=== PATIENT | female | born 1950 | race Caucasian/White ===

== ENCOUNTER 2016-11-04 18:24 | Emergency (ER) | payer OTHER ==
--- NOTE | 2016-11-04 18:35 | ER Document Report ---
ED Medical Screen (RME) - General Stated Complaint: FLU LIKE SYMPTOMS Notes: tuesday bodyaches, fever, chills, nasal congestion did not recieve flu vaccine this year I have greeted and performed a rapid initial assessment of this patient. A comprehensive ED assessment and evaluation of the patient, analysis of test results and completion of the medical decision making process will be conducted by additional ED providers. - Related Data Allergies/Adverse Reactions: No Known Allergies Allergy (Unverified 11/04/16 18:33) Physical Exam - Vital signs Vitals: Temp Pulse Resp BP Pulse Ox 97.8 F 77 18 106/88 H 97 11/04/16 18:30 11/04/16 18:30 11/04/16 18:30 11/04/16 18:30 11/04/16 18:30 Course - Vital Signs Vital signs: Temp Pulse Resp BP Pulse Ox 97.8 F 77 18 106/88 H 97 11/04/16 18:30 11/04/16 18:30 11/04/16 18:30 11/04/16 18:30 11/04/16 18:30
[2016-11-04] MEDS ORDERED: ALBUTEROL SULFATE HFA (90 MCG/PUFF) 8 GM MDI (1 MDI/ER DISP) IH PRN (19:58)
[2016-11-04] MEDS ORDERED: PREDNISONE 20 MG TABLET PO ONE (19:59)
--- NOTE | 2016-11-04 20:00 | ER Document Report ---
ED General - General Chief Complaint: Fever Stated Complaint: FLU LIKE SYMPTOMS Notes: Patient is a 65-year-old female with past medical history of asthma and hypertension who presents with 2 days of a persistent cough. States the cough has been unchanged since onset and is prohibiting her from being able to sleep. Multiple sick contacts with a similar illness. No recent history of similar symptoms states that she has not been trying anything to treat her symptoms and has not yet established a local primary care doctor. Nothing worsens her symptoms. Denies any chest pain, shortness of breath, vomiting or diarrhea. States that she's had subjective fever at home. TRAVEL OUTSIDE OF THE [place] IN LAST 30 DAYS: No - Related Data Allergies/Adverse Reactions: No Known Allergies Allergy (Unverified 11/04/16 18:33) Past Medical History - General Information source: Patient - Social History Smoking Status: Never Smoker Chew tobacco use (# tins/day): No Frequency of alcohol use: None Drug Abuse: None Lives with: Family Family History: Reviewed & Not Pertinent Patient has suicidal ideation: No Patient has homicidal ideation: No Endocrine Medical History: Reports: Hx Diabetes Mellitus Type 2 Renal/ Medical History: Denies: Hx Peritoneal Dialysis Review of Systems - Review of Systems Notes: Constitutional: Negative for fever. HENT: Positive for sore throat. Positive for voice loss Eyes: Negative for visual changes. Cardiovascular: Negative for chest pain. Respiratory: Negative for shortness of breath. Positive for cough Gastrointestinal: Negative for abdominal pain, vomiting or diarrhea. Genitourinary: Negative for dysuria. Musculoskeletal: Negative for back pain. Skin: Negative for rash. Neurological: Negative for headaches, weakness or numbness. 10 point ROS negative except as marked above and in HPI. Physical Exam - Vital signs Vitals: Temp Pulse Resp BP Pulse Ox 97.8 F 77 18 106/88 H 97 11/04/16 18:30 11/04/16 18:30 11/04/16 18:30 11/04/16 18:30 11/04/16 18:30 Interpretation: Normal Notes: PHYSICAL EXAMINATION: GENERAL: Well-appearing, well-nourished and in no acute distress. HEAD: Atraumatic, normocephalic. EYES: Pupils equal round and reactive to light, extraocular movements intact, sclera anicteric, conjunctiva are normal. ENT: nares patent, oropharynx clear without exudates. Moist mucous membranes. NECK: Normal range of motion, supple without lymphadenopathy LUNGS: Breath sounds clear to auscultation bilaterally and equal. Faint expiratory wheezes bilaterally HEART: Regular rate and rhythm without murmurs ABDOMEN: Soft, nontender, normoactive bowel sounds. No guarding, no rebound. No masses appreciated. EXTREMITIES: Normal range of motion, no pitting or edema. No cyanosis. NEUROLOGICAL: No focal neurological deficits. Moves all extremities spontaneously and on command. PSYCH: Normal mood, normal affect. SKIN: Warm, Dry, normal turgor, no rashes or lesions noted. Course - Re-evaluation Re-evalutation: 11/04/16 19:59 Presentation is most consistent with a viral upper respiratory infection. Patient is overall well appearance, vitals within normal limits, well-hydrated. Patient denies any headache, neck pain, and has no evidence of meningismus on examination. Patient does have a known history of asthma and does have a faint expiratory wheeze bilaterally. She is inserted on an albuterol inhaler will be started on steroids as well. No evidence of respiratory distress. Based on clinical exam and history, I do not suspect meningitis, strep pharyngitis, or an acute encephalitis. Rapid flu obtained in triage is unremarkable. Chest x- ray does not demonstrate any evidence of an acute pneumonia and do not clinically suspect this diagnosis. At this time will discharge with return precautions and follow-up recommendations. Verbal discharge instructions given a the bedside and opportunity for questions given. Medication warnings reviewed. Patient is in agreement with this plan and has verbalized understanding of return precautions and the need for primary care follow-up in the next 24-72 hours. - Vital Signs Vital signs: Temp Pulse Resp BP Pulse Ox 97.8 F 77 18 106/88 H 97 11/04/16 18:30 11/04/16 18:30 11/04/16 18:30 11/04/16 18:30 11/04/16 18:30 - Diagnostic Test Radiology reviewed: Image reviewed, Reports reviewed Radiology results interpreted by me: 11/04/16 21:16 Chest x-ray: No acute infiltrate or pulmonary edema Discharge - Discharge Clinical Impression: Asthma exacerbation Upper respiratory infection Qualifiers: URI type: unspecified URI Qualified Code(s): J06.9 - Acute upper respiratory infection, unspecified Condition: Good Disposition: HOME, SELF-CARE Additional Instructions: You were seen for symptoms most consistent with bronchitis. This can take up to 12 weeks to fully resolve. This is generally due to a viral infection. You have been started on an albuterol inhaler and steroids to help treat your asthma in the setting of this infection. Please follow-up with your primary doctor in the next 2-3 days. Return if you develop worsening cough, vomiting, fever >100.4, pass out, begin coughing blood, or have any other symptoms that are concerning to you. Please use the medications prescribed today as directed. Prescriptions: Benzonatate [Tessalon Perle 100 mg Capsule] 100 mg PO Q8HP PRN #40 cap PRN Reason: Prednisone [Deltasone 20 mg Tablet] 2 tab PO DAILY 5 Days
[2016-11-04 21:32] VITALS: BP 117/64
== END 2016-11-04 21:30 | disposition home or self-care (01) ==
LOC: ER 18:24
DX: J45.901 Unspecified asthma with (acute) exacerbation (principal); J06.9 Acute upper respiratory infection, unspecified; R50.9 Fever, unspecified; I10 Essential (primary) hypertension
CPT/HCPCS: 99284; 87804; 71020; J7512; J3490